=== PATIENT | female | born 1995 | race Caucasian/White ===

== ENCOUNTER 2016-07-16 08:26 | Emergency (ER) | payer OTHER ==
[2016-07-16 08:50] VITALS: BP 109/64
--- NOTE | 2016-07-16 09:26 | UC ---
Ear Complaint HPI - HPI Summary HPI Summary: right ear pain x 3 days + nasal congestion , cough, no fever - History of Current Complaint Chief Complaint: UCEar Stated Complaint: EAR PAIN,SINUS Time Seen by Provider: 07/16/16 09:13 Hx Obtained From: Patient Hx Last Menstrual Period: 07/10/16 ?: No Onset/Duration: Gradual Onset, Lasting Days - 3, Still Present Severity Initially: Moderate Severity Currently: Moderate Aggravating Factors: Nothing Alleviating Factors: Nothing Associated Signs/Symptoms: Positive: URI Symptoms. Negative: Discharge, Hearing Loss - Allergies/Home Medications Allergies/Adverse Reactions: Allergies Allergy/AdvReac Type Severity Reaction Status Date / Time No Known Allergies Allergy Verified 07/16/16 08:45 Home Medications: Home Medications Control Pill 1 tab PO DAILY 07/16/16 [History Confirmed 07/16/16] Cold Medicine 2 tab PO Q4H PRN 07/16/16 [History Confirmed 07/16/16] PMH/Surg Hx/FS Hx/Imm Hx Previously Healthy: Yes - Surgical History Surgical History: None - Family History Known Family History: Negative: Diabetes - Social History Alcohol Use: Occasionally Substance Use Type: None Smoking Status (MU): Never Smoked Tobacco - Immunization History Most Recent Influenza Vaccination: Not the Season Review of Systems Constitutional: Negative Skin: Negative Eyes: Negative ENT: Sore Throat, Ear Ache, Nasal Discharge Respiratory: Cough Cardiovascular: Negative All Other Systems Reviewed And Are Negative: Yes Physical Exam Triage Information Reviewed: Yes Appearance: Well-Appearing, No Pain Distress, Well-Nourished Vital Signs: Initial Vital Signs Temp 98.3 F 07/16/16 08:44 Pulse 92 07/16/16 08:44 Resp 16 07/16/16 08:44 BP 109/64 07/16/16 08:44 Pulse Ox 99 07/16/16 08:44 Vital Signs Reviewed: Yes Eye Exam: Normal Eyes: Positive: Conjunctiva Clear ENT: Positive: Normal ENT inspection, Hearing grossly normal, Pharynx normal, Nasal congestion, TM bulging - right, TM dull - right, TM red - right Neck exam: Normal Neck: Positive: Supple, Nontender, No Lymphadenopathy Respiratory: Positive: Chest non-tender, Lungs clear, Normal breath sounds Cardiovascular: Positive: RRR, No Murmur, Pulses Normal Abdominal Exam: Normal Abdomen Description: Positive: Nontender, Soft Bowel Sounds: Positive: Present Skin Exam: Normal Ear Complaint Course/Dx - Differential Dx/Diagnosis Provider Diagnoses: otitis media right ear Discharge - Discharge Plan Condition: Stable Disposition: HOME Prescriptions: Amoxicillin (*) [Amoxicillin 875 MG (*)] 875 mg PO BID #20 tab Patient Education Materials: Otitis Media (ED) Referrals: Ashutosh Waite DO [Primary Care Provider] - 7 Days
== END 2016-07-16 09:34 | disposition home or self-care (01) ==
LOC: UCCORT 08:26
DX: H66.91 Otitis media, unspecified, right ear (principal); R09.81 Nasal congestion; R05 Cough
CPT/HCPCS: 99202; G0463